=== PATIENT | male | born 1990 | race Caucasian/White ===

== ENCOUNTER 2022-03-03 17:13 | Emergency (ER) | payer BC ==
[~2022-03-03] VITALS: Ht 185.4 cm; Wt 97.7 kg
[2022-03-03 17:22] VITALS: BP 124/58; PULSE 67; TEMP 98.2
[2022-03-03] MEDS ORDERED: PROAIR HFA0.09 MG/AC IH (17:24)
== END 2022-03-03 17:55 | disposition home or self-care (01) ==
LOC: COL.ER 17:13
DX: S46.222A Laceration of muscle, fascia and tendon of other parts of biceps, left arm, initial encounter (principal); X50.1XXA Overexertion from prolonged static or awkward postures, initial encounter; Y93.F2 Activity, caregiving, lifting; Y92.39 Other specified sports and athletic area as the place of occurrence of the external cause

== ENCOUNTER → 2024-01-30 | Outpatient (CLI) | payer BC ==
[~2024-01-30] MED LIST: Gadoterate 5 ML VIAL IV ONE; Iohexol 300 - 10 ML VIAL IV ONE; PROAIR HFA0.09 MG/AC IH
== END ==
LOC: COL.RAD 09:20
DX: M19.011 Primary osteoarthritis, right shoulder (principal)
CPT/HCPCS: A9575; Q9967